=== PATIENT | male | born 1965 | race Caucasian/White ===

== ENCOUNTER → 2024-05-17 11:39 | Outpatient (CLI) | payer OTHER, SELFPAY ==
[2024-05-17 13:49] LABS: Appearance Urine UA CLEAR; Bilirubin Urine UA NEGATIVE (NEGATIVE); Color Urine UA YELLOW; Glucose Urine UA 3+ g/dL (Negative); Ketones Urine UA NEGATIVE (NEGATIVE); Leukocyte Esterase Urine UA NEGATIVE (NEGATIVE); Nitrite Urine UA NEGATIVE (Negative); Occult Blood Urine UA NEGATIVE (Negative); Protein Urine UA NEGATIVE (Negative); Urobilinogen Urine UA 0.2 E.U./dL (0.2); pH Urine UA 6.5 (4.5-8.0)
[2024-05-17 14:09] LABS: Urine Volume 10mL (spun)
[2024-05-17 14:10] LABS: Bacteria Urine None Seen; Culture Indicated Urine Cult Not Indicated; RBC Urine None Seen (0-5/HPF); Squamous Epithelial Cell Urine 0-1 /HPF (0-5/HPF); WBC Urine None Seen (0-5/HPF)
== END ==
LOC: LAB 11:42
PROVIDERS: Referring Provider Chiropractor; Visit Provider Chiropractor
DX: E11.9 Type 2 diabetes mellitus without complications (principal)
CPT/HCPCS: 81001

== ENCOUNTER → 2024-06-10 08:09 | Outpatient (CLI) | payer OTHER, SELFPAY ==
[2024-06-10 09:34] LABS: Alanine Aminotransferase 24 IU/L (<50); Albumin Globulin Ratio 1.3 (1.0-2.8); Alkaline Phosphatase 117 U/L (38-126); Aspartate Aminotransferase 20 IU/L (17-59); BUN Creatinine Ratio 32.3 (6-22); Bilirubin Total 0.5 mg/dL (0.2-1.3); Blood Urea Nitrogen 20 mg/dL (9-20); Calcium 8.9 mg/dL (8.4-10.2); Carbon Dioxide 25 mmol/L (22-32); Chloride 104 mmol/L (98-107); Estimated Glomerular Filt Rate > 60 mL/min (>60); Glucose 235 mg/dL (80-110); HEMOLYSIS < 15 (0-50); Potassium 4.6 mmol/L (3.4-5.1); Sodium 136 mmol/L (137-145)
== END ==
PROVIDERS: Referring Provider Chiropractor; Visit Provider Chiropractor
DX: E11.9 Type 2 diabetes mellitus without complications (principal)
CPT/HCPCS: 36415; 80053